=== PATIENT | male | born 1980 | race Caucasian/White ===

== ENCOUNTER 2023-06-22 11:58 | Inpatient (IN) | payer OTHER ==
[2023-06-22 12:31] VITALS: BMI 21.6
[2023-06-22] MEDS ORDERED: POLYETHYLENE GLYCOL (HEALTHYLAX) 3350 17 GM PACKET PO PRN (15:43)
[2023-06-22] MEDS ORDERED: NALOXONE HCL (KLOXXADO) 8 MG SPRAY NS PRN (15:43)
[2023-06-22] MEDS ORDERED: ACETAMINOPHEN 325 MG TABLET (FP) PO PRN (15:43)
[2023-06-22] MEDS ORDERED: IBUPROFEN 400 MG TABLET (FP) PO PRN (15:43)
[2023-06-22] MEDS ORDERED: DICYCLOMINE HCL 10 MG CAPSULE PO PRN (15:43)
[2023-06-22] MEDS ORDERED: MAG HYDROX/AL HYDROX/SIMETH 30 ML UNIT-DOSE CUP PO PRN (15:43)
[2023-06-22] MEDS ORDERED: LOPERAMIDE HCL 2 MG CAPSULE PO PRN (15:43)
[2023-06-22] MEDS ORDERED: BENZONATATE 200 MG CAPSULE PO PRN (15:43)
[2023-06-22] MEDS ORDERED: NALOXONE HCL 0.4 MG/ML VIAL IM PRN (15:43)
[2023-06-22] MEDS ORDERED: BENZOCAINE/MENTHOL (CHLORASEPTIC ) LOZENGE MM PRN (15:43)
[2023-06-22] MEDS ORDERED: ONDANSETRON *ODT* 4 MG TABLET SL PRN (15:43)
[2023-06-22] MEDS ORDERED: MAGNESIUM HYDROX 2400MG/30ML ORAL SUSPENSION 30 ML CUP PO PRN (15:43)
[2023-06-22] MEDS ORDERED: guaiFENesin 600 MG TABLET.ER (FP) PO PRN (15:43)
[2023-06-22] MEDS ORDERED: levETIRAcetam 500 MG TABLET (FP) PO SCH ×2 (16:30→22:00)
[2023-06-22] MEDS: levETIRAcetam 500 MG TABLET (FP) PO SCH (21:34)
[2023-06-22] MEDS: THIAMINE HCL 100 MG TABLET (FP) PO SCH (21:34)
[2023-06-22] MEDS: METHOCARBAMOL 500 MG TABLET PO PRN (21:34)
[2023-06-22] MEDS: MELATONIN 5 MG TABLETS PO SCH (21:34)
[2023-06-23] MEDS ORDERED: chlordiazePOXIDE HCL 25 MG CAPSULE PO PRN (08:34)
[2023-06-23] MEDS: BISMUTH SUBSALICYLATE 524 MG/30 ML PO PRN (09:00)
[2023-06-23] MEDS: PRENATAL VITAMINS W/ FOLIC ACID TABLET (FP) PO SCH (09:00)
[2023-06-23] MEDS: levETIRAcetam 500 MG TABLET (FP) PO SCH ×2 (09:00→22:25)
[2023-06-23] MEDS: IBUPROFEN 600 MG TABLET (FP) PO PRN ×2 (09:05→22:26)
[2023-06-23] MEDS: chlordiazePOXIDE HCL 25 MG CAPSULE PO SCH ×3 (10:52→22:25)
[2023-06-23 12:14] LABS: CHLORIDE 106 mmol/L (98-107); POTASSIUM 3.6 mmol/L (3.5-5.1); SODIUM 141 mmol/L (136-145)
[2023-06-23 12:18] LABS: CALCIUM 8.5 mg/dL (8.5-10.1)
[2023-06-23 12:19] LABS: ALBUMIN 3.3 g/dl (3.4-5.0); ANION GAP 8 mmol/L (4-13); BLOOD UREA NITROGEN 6.1 mg/dL (7-18); CO2 28 mmol/L (21-32); GLUCOSE,RANDOM 89 mg/dL (74-106); HEMATOCRIT 40.1 % (35.4-49); HEMOGLOBIN 12.8 GM/dL (11.7-16.9); MCH 28.6 pg (25.7-33.7); MCHC 31.9 g/dl (32.0-35.9); MEAN CELL VOLUME 89.8 fl (80-96); MEAN PLT VOLUME 8.4 fl (7.5-11.1); PLATELET COUNT 81 10^3/uL (134-434); RBC 4.46 M/mm3 (4.00-5.60); RDW 19.1 % (11.9-15.9); WHITE BLOOD COUNT 2.9 K/mm3 (4.0-10.0)
[2023-06-23 12:22] LABS: CREATININE 0.6 mg/dL (0.55-1.3); SGOT/AST 173 U/L (15-37); SGPT/ALT 115 U/L (13-61)
[2023-06-23 12:23] LABS: BILIRUBIN,TOTAL 1.2 mg/dL (0.2-1); TOT PROT 6.6 g/dl (6.4-8.2)
[2023-06-23 12:25] LABS: ALK PHOS 128 U/L (45-117)
[2023-06-23] MEDS: METHOCARBAMOL 500 MG TABLET PO PRN ×2 (14:00→22:25)
[2023-06-23] MEDS: METOPROLOL TARTRATE 25 MG TABLET (FP) PO SCH (15:28)
[2023-06-23] MEDS: THIAMINE HCL 100 MG TABLET (FP) PO SCH (22:25)
[2023-06-23] MEDS: MELATONIN 5 MG TABLETS PO SCH (22:25)
[2023-06-24] MEDS: chlordiazePOXIDE HCL 25 MG CAPSULE PO SCH ×4 (05:46→22:07)
[2023-06-24] MEDS: PRENATAL VITAMINS W/ FOLIC ACID TABLET (FP) PO SCH (10:10)
[2023-06-24] MEDS: levETIRAcetam 500 MG TABLET (FP) PO SCH ×2 (10:10→22:06)
[2023-06-24] MEDS: IBUPROFEN 600 MG TABLET (FP) PO PRN ×2 (10:10→17:35)
[2023-06-24] MEDS: METHOCARBAMOL 500 MG TABLET PO PRN ×2 (10:10→22:07)
[2023-06-24] MEDS: METOPROLOL TARTRATE 25 MG TABLET (FP) PO SCH (10:10)
[2023-06-24 12:21] LABS: HEMATOCRIT 41.2 % (35.4-49); HEMOGLOBIN 13.5 GM/dL (11.7-16.9); MCH 28.9 pg (25.7-33.7); MCHC 32.7 g/dl (32.0-35.9); MEAN CELL VOLUME 88.2 fl (80-96); MEAN PLT VOLUME 9.2 fl (7.5-11.1); PLATELET COUNT 84 10^3/uL (134-434); RBC 4.67 M/mm3 (4.00-5.60); RDW 18.7 % (11.9-15.9); WHITE BLOOD COUNT 2.7 K/mm3 (4.0-10.0)
[2023-06-24 12:26] LABS: POTASSIUM 3.6 mmol/L (3.5-5.1)
[2023-06-24 12:28] LABS: CALCIUM 8.2 mg/dL (8.5-10.1)
[2023-06-24 12:29] LABS: ALBUMIN 3.2 g/dl (3.4-5.0); BLOOD UREA NITROGEN 7.4 mg/dL (7-18)
[2023-06-24 12:32] LABS: CREATININE 0.6 mg/dL (0.55-1.3)
[2023-06-24 12:34] LABS: BILIRUBIN,TOTAL 0.7 mg/dL (0.2-1); TOT PROT 6.5 g/dl (6.4-8.2)
[2023-06-24] MEDS: BISMUTH SUBSALICYLATE 524 MG/30 ML PO PRN (17:39)
[2023-06-24] MEDS: THIAMINE HCL 100 MG TABLET (FP) PO SCH (22:06)
[2023-06-24] MEDS: MELATONIN 5 MG TABLETS PO SCH (22:06)
[2023-06-24] MEDS: hydrOXYzine PAMOATE 25 MG CAPSULE (FP) PO PRN (22:07)
[2023-06-25] MEDS: chlordiazePOXIDE HCL 25 MG CAPSULE PO SCH ×4 (05:50→22:05)
[2023-06-25] MEDS: METHOCARBAMOL 500 MG TABLET PO PRN ×2 (08:05→22:05)
[2023-06-25] MEDS: hydrOXYzine PAMOATE 25 MG CAPSULE (FP) PO PRN ×2 (08:05→22:05)
[2023-06-25] MEDS: levETIRAcetam 500 MG TABLET (FP) PO SCH ×2 (10:19→22:05)
[2023-06-25] MEDS: METOPROLOL TARTRATE 25 MG TABLET (FP) PO SCH (10:19)
[2023-06-25] MEDS: PRENATAL VITAMINS W/ FOLIC ACID TABLET (FP) PO SCH (10:20)
[2023-06-25] MEDS: IBUPROFEN 600 MG TABLET (FP) PO PRN (10:21)
[2023-06-25] MEDS: THIAMINE HCL 100 MG TABLET (FP) PO SCH (22:05)
[2023-06-25] MEDS: MELATONIN 5 MG TABLETS PO SCH (22:05)
[2023-06-25] MEDS: BISMUTH SUBSALICYLATE 524 MG/30 ML PO PRN (22:08)
[2023-06-26] MEDS ORDERED: chlordiazePOXIDE HCL 10 MG CAPSULE PO PRN
[2023-06-26] MEDS: chlordiazePOXIDE HCL 10 MG CAPSULE PO SCH ×4 (05:53→22:13)
[2023-06-26] MEDS: METHOCARBAMOL 500 MG TABLET PO PRN ×2 (05:53→22:13)
[2023-06-26] MEDS: PRENATAL VITAMINS W/ FOLIC ACID TABLET (FP) PO SCH (10:26)
[2023-06-26] MEDS: METOPROLOL TARTRATE 25 MG TABLET (FP) PO SCH (10:26)
[2023-06-26] MEDS: levETIRAcetam 500 MG TABLET (FP) PO SCH ×2 (10:26→22:13)
[2023-06-26 11:37] LABS: POTASSIUM 4.3 mmol/L (3.5-5.1)
[2023-06-26 11:42] LABS: BASO % 0.8 % (0-2.0); HEMATOCRIT 40.5 % (35.4-49); HEMOGLOBIN 13.1 GM/dL (11.7-16.9); LYMPH % 29.5 % (8-40); MCH 29.2 pg (25.7-33.7); MCHC 32.3 g/dl (32.0-35.9); MEAN CELL VOLUME 90.4 fl (80-96); NEUT % 47.7 % (42.8-82.8); PLATELET COUNT 117 10^3/uL (134-434); RBC 4.48 M/mm3 (4.00-5.60); RDW 19.1 % (11.9-15.9); WHITE BLOOD COUNT 4.2 K/mm3 (4.0-10.0)
[2023-06-26 11:44] LABS: CALCIUM 8.8 mg/dL (8.5-10.1)
[2023-06-26 11:47] LABS: BLOOD UREA NITROGEN 16.1 mg/dL (7-18)
[2023-06-26 11:50] LABS: CREATININE 0.6 mg/dL (0.55-1.3)
[2023-06-26] MEDS: BISMUTH SUBSALICYLATE 524 MG/30 ML PO PRN (17:13)
[2023-06-26] MEDS: IBUPROFEN 600 MG TABLET (FP) PO PRN (17:15)
[2023-06-26] MEDS: THIAMINE HCL 100 MG TABLET (FP) PO SCH (22:13)
[2023-06-26] MEDS: MELATONIN 5 MG TABLETS PO SCH (22:13)
[2023-06-27] MEDS: IBUPROFEN 600 MG TABLET (FP) PO PRN ×2 (01:31→17:29)
[2023-06-27] MEDS: chlordiazePOXIDE HCL 10 MG CAPSULE PO SCH ×2 (05:21→17:30)
[2023-06-27] MEDS: METOPROLOL TARTRATE 25 MG TABLET (FP) PO SCH (09:49)
[2023-06-27] MEDS: levETIRAcetam 500 MG TABLET (FP) PO SCH ×2 (09:49→22:14)
[2023-06-27] MEDS: PRENATAL VITAMINS W/ FOLIC ACID TABLET (FP) PO SCH (09:49)
[2023-06-27] MEDS: BISMUTH SUBSALICYLATE 524 MG/30 ML PO PRN (17:29)
[2023-06-27] MEDS: THIAMINE HCL 100 MG TABLET (FP) PO SCH (22:14)
[2023-06-27] MEDS: METHOCARBAMOL 500 MG TABLET PO PRN (22:14)
[2023-06-27] MEDS: MELATONIN 5 MG TABLETS PO SCH (22:14)
[2023-06-28] MEDS ORDERED: chlordiazePOXIDE HCL 10 MG CAPSULE PO ONE (05:00)
[2023-06-28] MEDS: levETIRAcetam 500 MG TABLET (FP) PO SCH (10:07)
[2023-06-28] MEDS: PRENATAL VITAMINS W/ FOLIC ACID TABLET (FP) PO SCH (10:07)
[2023-06-28] MEDS: METOPROLOL TARTRATE 25 MG TABLET (FP) PO SCH (10:07)
[2023-06-28] MEDS: IBUPROFEN 600 MG TABLET (FP) PO PRN (10:08)
[2023-06-28 14:11] VITALS: BP 113/73; PULSE 79; RESP 18; TEMP 97.8
== END 2023-06-28 14:48 | disposition short-term general hospital (02) | DRG 775 ==
LOC: YASAS 11:58 → Y3N 15:39
PROVIDERS: ADMIT Allergy & Immunology; ATTEND Psychiatry & Neurology Pain Medicine
PROC: HZ2ZZZZ Detoxification Services for Substance Abuse Treatment (ICD-10-PCS; principal; 2023-06-22)
DX: F10.230 Alcohol dependence with withdrawal, uncomplicated (principal); F17.210 Nicotine dependence, cigarettes, uncomplicated; D72.819 Decreased white blood cell count, unspecified; G40.909 Epilepsy, unspecified, not intractable, without status epilepticus; I10 Essential (primary) hypertension; R74.01 Elevation of levels of liver transaminase levels; R91.8 Other nonspecific abnormal finding of lung field; Z86.11 Personal history of tuberculosis; Z99.89 Dependence on other enabling machines and devices
CPT/HCPCS: 36415; 71046-TC-FY; 71250-TC; 80048; 80053; 80177; 80307; 85025; 85027; 86780; 87635; 93005; 93010

== ENCOUNTER 2023-06-28 15:38 | Emergency (ER) | payer OTHER | END 2023-06-28 16:00 | disposition left against medical advice (07) | LOC: JER 15:38 | DX: Z53.21 Procedure and treatment not carried out due to patient leaving prior to being seen by health care provider (principal) | CPT/HCPCS: 99281-25 ==

== ENCOUNTER 2023-08-11 10:43 | Inpatient (IN) | payer OTHER ==
[2023-08-11 11:18] VITALS: BMI 22.4
[2023-08-11] MEDS ORDERED: chlordiazePOXIDE HCL 25 MG CAPSULE PO PRN (11:56)
[2023-08-11] MEDS ORDERED: chlordiazePOXIDE HCL 25 MG CAPSULE PO ONE (12:00)
[2023-08-11] MEDS ORDERED: levETIRAcetam 500 MG TABLET (FP) PO SCH (12:00)
[2023-08-11] MEDS ORDERED: guaiFENesin 600 MG TABLET.ER (FP) PO PRN (12:04)
[2023-08-11] MEDS ORDERED: DICYCLOMINE HCL 10 MG CAPSULE PO PRN (12:04)
[2023-08-11] MEDS ORDERED: ONDANSETRON *ODT* 4 MG TABLET SL PRN (12:04)
[2023-08-11] MEDS ORDERED: IBUPROFEN 400 MG TABLET (FP) PO PRN (12:04)
[2023-08-11] MEDS ORDERED: LOPERAMIDE HCL 2 MG CAPSULE PO PRN (12:04)
[2023-08-11] MEDS ORDERED: BENZOCAINE/MENTHOL (CHLORASEPTIC ) LOZENGE MM PRN (12:04)
[2023-08-11] MEDS ORDERED: POLYETHYLENE GLYCOL (HEALTHYLAX) 3350 17 GM PACKET PO PRN (12:04)
[2023-08-11] MEDS ORDERED: MAG HYDROX/AL HYDROX/SIMETH 30 ML UNIT-DOSE CUP PO PRN (12:04)
[2023-08-11] MEDS ORDERED: ACETAMINOPHEN 325 MG TABLET (FP) PO PRN (12:04)
[2023-08-11] MEDS ORDERED: MAGNESIUM HYDROX 2400MG/30ML ORAL SUSPENSION 30 ML CUP PO PRN (12:04)
[2023-08-11] MEDS ORDERED: P-EPHED 60MG/TRIPROLIDI 2.5MG TABLET PO PRN (12:04)
[2023-08-11] MEDS ORDERED: NICOTINE POLACRILEX 2 MG GUM BUC PRN (12:04)
[2023-08-11] MEDS ORDERED: BENZONATATE 200 MG CAPSULE PO PRN (12:04)
[2023-08-11] MEDS ORDERED: BISMUTH SUBSALICYLATE 262 MG/15 ML BTL PO PRN (12:04)
[2023-08-11] MEDS ORDERED: chlordiazePOXIDE HCL 25 MG CAPSULE ONE (12:31)
[2023-08-11] MEDS ORDERED: METOPROLOL TARTRATE 25 MG TABLET (FP) ONE (12:31)
[2023-08-11] MEDS: METOPROLOL TARTRATE 25 MG TABLET (FP) PO SCH (12:32)
[2023-08-11] MEDS ORDERED: levETIRAcetam 500 MG TABLET (FP) PO ONE (12:55)
[2023-08-11] MEDS: IBUPROFEN 600 MG TABLET (FP) PO PRN (13:12)
[2023-08-11] MEDS: chlordiazePOXIDE HCL 25 MG CAPSULE PO SCH ×2 (17:21→22:18)
[2023-08-11] MEDS: levETIRAcetam 500 MG TABLET (FP) PO SCH (22:18)
[2023-08-11] MEDS: THIAMINE HCL 100 MG TABLET (FP) PO SCH (22:18)
[2023-08-11] MEDS: MELATONIN 5 MG TABLETS PO SCH (22:19)
[2023-08-12] MEDS: chlordiazePOXIDE HCL 25 MG CAPSULE PO SCH ×4 (05:11→22:22)
[2023-08-12] MEDS: IBUPROFEN 600 MG TABLET (FP) PO PRN ×2 (05:14→17:05)
[2023-08-12] MEDS: levETIRAcetam 500 MG TABLET (FP) PO SCH ×2 (10:45→22:21)
[2023-08-12] MEDS: PRENATAL VITAMINS W/ FOLIC ACID TABLET (FP) PO SCH (10:45)
[2023-08-12] MEDS: METOPROLOL TARTRATE 25 MG TABLET (FP) PO SCH (10:45)
[2023-08-12] MEDS: METHOCARBAMOL 500 MG TABLET PO PRN (10:47)
[2023-08-12 12:39] LABS: HEMATOCRIT 36.1 % (35.4-49); HEMOGLOBIN 11.6 GM/dL (11.7-16.9); MCH 28.7 pg (25.7-33.7); MEAN CELL VOLUME 89.6 fl (80-96); MEAN PLT VOLUME 8.8 fl (7.5-11.1); PLATELET COUNT 208 10^3/uL (134-434); RBC 4.03 M/mm3 (4.00-5.60); RDW 17.2 % (11.9-15.9)
[2023-08-12 12:47] LABS: POTASSIUM 3.6 mmol/L (3.5-5.1)
[2023-08-12 12:50] LABS: ALBUMIN 3.2 g/dl (3.4-5.0); CALCIUM 8.5 mg/dL (8.5-10.1)
[2023-08-12 12:51] LABS: BLOOD UREA NITROGEN 8.5 mg/dL (7-18)
[2023-08-12 12:54] LABS: CREATININE 0.6 mg/dL (0.55-1.3)
[2023-08-12 12:56] LABS: BILIRUBIN,TOTAL 0.6 mg/dL (0.2-1); TOT PROT 6.4 g/dl (6.4-8.2)
[2023-08-12] MEDS: ACETAMINOPHEN 325 MG TABLET (FP) PO PRN (22:20)
[2023-08-12] MEDS: MELATONIN 5 MG TABLETS PO SCH (22:21)
[2023-08-12] MEDS: THIAMINE HCL 100 MG TABLET (FP) PO SCH (22:22)
[2023-08-13] MEDS: chlordiazePOXIDE HCL 25 MG CAPSULE PO SCH ×4 (05:20→22:13)
[2023-08-13] MEDS: PRENATAL VITAMINS W/ FOLIC ACID TABLET (FP) PO SCH (10:16)
[2023-08-13] MEDS: METOPROLOL TARTRATE 25 MG TABLET (FP) PO SCH (10:16)
[2023-08-13] MEDS: levETIRAcetam 500 MG TABLET (FP) PO SCH ×2 (10:16→22:13)
[2023-08-13] MEDS: ACETAMINOPHEN 325 MG TABLET (FP) PO PRN (10:26)
[2023-08-13] MEDS: METHOCARBAMOL 500 MG TABLET PO PRN (20:37)
[2023-08-13] MEDS: THIAMINE HCL 100 MG TABLET (FP) PO SCH (22:13)
[2023-08-13] MEDS: MELATONIN 5 MG TABLETS PO SCH (22:13)
[2023-08-14] MEDS ORDERED: chlordiazePOXIDE HCL 10 MG CAPSULE PO PRN
[2023-08-14] MEDS: chlordiazePOXIDE HCL 10 MG CAPSULE PO SCH ×2 (05:42→10:40)
[2023-08-14 06:00] VITALS: RESP 16
[2023-08-14 09:28] VITALS: BP 110/78; PULSE 82; TEMP 98.1
[2023-08-14] MEDS: PRENATAL VITAMINS W/ FOLIC ACID TABLET (FP) PO SCH (10:35)
[2023-08-14] MEDS: levETIRAcetam 500 MG TABLET (FP) PO SCH (10:36)
[2023-08-14] MEDS: METOPROLOL TARTRATE 25 MG TABLET (FP) PO SCH (10:40)
[2023-08-15] MEDS ORDERED: chlordiazePOXIDE HCL 10 MG CAPSULE PO SCH (05:00)
[2023-08-16] MEDS ORDERED: chlordiazePOXIDE HCL 10 MG CAPSULE PO ONE (05:00)
== END 2023-08-14 11:47 | disposition left against medical advice (07) | DRG 770 ==
LOC: YASAS 10:43 → Y3N 12:23
PROVIDERS: ADMIT Allergy & Immunology; ATTEND Surgery
PROC: HZ2ZZZZ Detoxification Services for Substance Abuse Treatment (ICD-10-PCS; principal; 2023-08-11)
DX: F10.230 Alcohol dependence with withdrawal, uncomplicated (principal); F17.210 Nicotine dependence, cigarettes, uncomplicated; F19.24 Other psychoactive substance dependence with psychoactive substance-induced mood disorder; G40.909 Epilepsy, unspecified, not intractable, without status epilepticus; I10 Essential (primary) hypertension; M54.50 Low back pain, unspecified; G89.29 Other chronic pain; R74.8 Abnormal levels of other serum enzymes; Z87.828 Personal history of other (healed) physical injury and trauma; Z99.89 Dependence on other enabling machines and devices; Z59.00 Homelessness unspecified
CPT/HCPCS: 36415; 80053; 85027; 86780; 87635; 87811

== ENCOUNTER 2023-09-01 21:51 | Inpatient (IN) | payer OTHER ==
[2023-09-01 22:21] VITALS: BMI 22.9
[2023-09-02] MEDS ORDERED: NALOXONE HCL (KLOXXADO) 8 MG SPRAY NS PRN (00:12)
[2023-09-02] MEDS ORDERED: NICOTINE POLACRILEX 2 MG GUM BUC PRN (00:12)
[2023-09-02] MEDS ORDERED: IBUPROFEN 400 MG TABLET (FP) PO PRN (00:12)
[2023-09-02] MEDS ORDERED: ACETAMINOPHEN 325 MG TABLET (FP) PO PRN (00:12)
[2023-09-02] MEDS ORDERED: MAG HYDROX/AL HYDROX/SIMETH 30 ML UNIT-DOSE CUP PO PRN (00:12)
[2023-09-02] MEDS ORDERED: NALOXONE HCL 0.4 MG/ML VIAL IM PRN (00:12)
[2023-09-02] MEDS ORDERED: ONDANSETRON *ODT* 4 MG TABLET SL PRN (00:12)
[2023-09-02] MEDS ORDERED: BENZOCAINE/MENTHOL (CHLORASEPTIC ) LOZENGE MM PRN (00:12)
[2023-09-02] MEDS ORDERED: DICYCLOMINE HCL 10 MG CAPSULE PO PRN (00:12)
[2023-09-02] MEDS ORDERED: MAGNESIUM HYDROX 2400MG/30ML ORAL SUSPENSION 30 ML CUP PO PRN (00:12)
[2023-09-02] MEDS ORDERED: POLYETHYLENE GLYCOL (HEALTHYLAX) 3350 17 GM PACKET PO PRN (00:12)
[2023-09-02] MEDS ORDERED: BISMUTH SUBSALICYLATE 524 MG/30 ML PO PRN (00:12)
[2023-09-02] MEDS ORDERED: LOPERAMIDE HCL 2 MG CAPSULE PO PRN (00:12)
[2023-09-02] MEDS: IBUPROFEN 600 MG TABLET (FP) PO PRN ×3 (04:22→21:34)
[2023-09-02] MEDS: METHOCARBAMOL 500 MG TABLET PO PRN ×2 (04:23→21:34)
[2023-09-02] MEDS: BENZONATATE 200 MG CAPSULE PO PRN (09:26)
[2023-09-02] MEDS: METOPROLOL TARTRATE 25 MG TABLET (FP) PO SCH (09:26)
[2023-09-02] MEDS: levETIRAcetam 500 MG TABLET (FP) PO SCH ×2 (09:26→21:34)
[2023-09-02] MEDS: PRENATAL VITAMINS W/ FOLIC ACID TABLET (FP) PO SCH (09:27)
[2023-09-02] MEDS: NICOTINE 21 MG/24 HOURS TOPICAL PATCH TD SCH (09:27)
[2023-09-02] MEDS ORDERED: chlordiazePOXIDE HCL 25 MG CAPSULE PO PRN (10:09)
[2023-09-02] MEDS: chlordiazePOXIDE HCL 25 MG CAPSULE PO SCH ×3 (10:27→22:27)
[2023-09-02] MEDS: guaiFENesin 600 MG TABLET.ER (FP) PO PRN ×2 (14:11→21:34)
[2023-09-02] MEDS: THIAMINE HCL 100 MG TABLET (FP) PO SCH (21:34)
[2023-09-02] MEDS: MELATONIN 5 MG TABLETS PO SCH (21:34)
[2023-09-03] MEDS: chlordiazePOXIDE HCL 25 MG CAPSULE PO SCH ×4 (05:42→22:38)
[2023-09-03] MEDS: PRENATAL VITAMINS W/ FOLIC ACID TABLET (FP) PO SCH (10:18)
[2023-09-03] MEDS: levETIRAcetam 500 MG TABLET (FP) PO SCH ×2 (10:18→22:36)
[2023-09-03] MEDS: NICOTINE 21 MG/24 HOURS TOPICAL PATCH TD SCH (10:18)
[2023-09-03] MEDS: METOPROLOL TARTRATE 25 MG TABLET (FP) PO SCH (10:18)
[2023-09-03] MEDS: cloNIDine HCL 0.1 MG TABLET PO PRN (10:18)
[2023-09-03 11:43] LABS: HEMATOCRIT 34.1 % (35.4-49); HEMOGLOBIN 11.1 GM/dL (11.7-16.9); MCH 27.7 pg (25.7-33.7); MCHC 32.6 g/dl (32.0-35.9); MEAN PLT VOLUME 8.7 fl (7.5-11.1); PLATELET COUNT 74 10^3/uL (134-434); RBC 4.02 M/mm3 (4.00-5.60); RDW 17.8 % (11.9-15.9)
[2023-09-03 11:47] LABS: WHITE BLOOD COUNT 1.8 K/mm3 (4.0-10.0)
[2023-09-03 12:04] LABS: POTASSIUM 3.5 mmol/L (3.5-5.1)
[2023-09-03 12:11] LABS: ALBUMIN 3.4 g/dl (3.4-5.0); CALCIUM 8.6 mg/dL (8.5-10.1)
[2023-09-03 12:12] LABS: CREATININE 0.6 mg/dL (0.55-1.3)
[2023-09-03 12:13] LABS: BILIRUBIN,TOTAL 0.4 mg/dL (0.2-1); TOT PROT 6.8 g/dl (6.4-8.2)
[2023-09-03 12:23] LABS: BLOOD UREA NITROGEN 7.7 mg/dL (7-18)
[2023-09-03] MEDS: METHOCARBAMOL 500 MG TABLET PO PRN (22:36)
[2023-09-03] MEDS: MELATONIN 5 MG TABLETS PO SCH (22:36)
[2023-09-03] MEDS: THIAMINE HCL 100 MG TABLET (FP) PO SCH (22:53)
[2023-09-04] MEDS: chlordiazePOXIDE HCL 25 MG CAPSULE PO SCH ×4 (05:44→22:03)
[2023-09-04] MEDS: PRENATAL VITAMINS W/ FOLIC ACID TABLET (FP) PO SCH (09:29)
[2023-09-04] MEDS: METHOCARBAMOL 500 MG TABLET PO PRN ×2 (09:29→21:54)
[2023-09-04] MEDS: METOPROLOL TARTRATE 25 MG TABLET (FP) PO SCH (09:29)
[2023-09-04] MEDS: levETIRAcetam 500 MG TABLET (FP) PO SCH ×2 (09:29→21:54)
[2023-09-04] MEDS: BENZONATATE 200 MG CAPSULE PO PRN (09:29)
[2023-09-04] MEDS: NICOTINE 21 MG/24 HOURS TOPICAL PATCH TD SCH (09:37)
[2023-09-04] MEDS: cloNIDine HCL 0.1 MG TABLET PO PRN (13:20)
[2023-09-04] MEDS: MELATONIN 5 MG TABLETS PO SCH (21:54)
[2023-09-04] MEDS: THIAMINE HCL 100 MG TABLET (FP) PO SCH (21:54)
[2023-09-05] MEDS ORDERED: chlordiazePOXIDE HCL 10 MG CAPSULE PO PRN
[2023-09-05] MEDS: chlordiazePOXIDE HCL 10 MG CAPSULE PO SCH ×4 (05:37→22:16)
[2023-09-05] MEDS: levETIRAcetam 500 MG TABLET (FP) PO SCH ×2 (09:36→22:16)
[2023-09-05] MEDS: NICOTINE 21 MG/24 HOURS TOPICAL PATCH TD SCH (09:36)
[2023-09-05] MEDS: PRENATAL VITAMINS W/ FOLIC ACID TABLET (FP) PO SCH (09:36)
[2023-09-05] MEDS: METOPROLOL TARTRATE 25 MG TABLET (FP) PO SCH (09:36)
[2023-09-05 11:08] LABS: BASO % 0.7 % (0-2.0); EOS % 5.2 % (0-4.5); HEMATOCRIT 38.5 % (35.4-49); HEMOGLOBIN 12.2 GM/dL (11.7-16.9); LYMPH % 43.9 % (8-40); MCH 27.5 pg (25.7-33.7); MCHC 31.8 g/dl (32.0-35.9); MEAN CELL VOLUME 86.4 fl (80-96); MEAN PLT VOLUME 8.9 fl (7.5-11.1); MONO % 18.7 % (3.8-10.2); NEUT % 31.5 % (42.8-82.8); PLATELET COUNT 95 10^3/uL (134-434); RBC 4.45 M/mm3 (4.00-5.60); RDW 17.6 % (11.9-15.9); WHITE BLOOD COUNT 2.9 K/mm3 (4.0-10.0)
[2023-09-05] MEDS: cloNIDine HCL 0.1 MG TABLET PO PRN (12:42)
[2023-09-05] MEDS: METHOCARBAMOL 500 MG TABLET PO PRN (12:42)
[2023-09-05] MEDS: guaiFENesin 200 MG/10 ML 10 ML UNIT-DOSE CUPS PO PRN ×3 (12:56→22:00)
[2023-09-05] MEDS: MELATONIN 5 MG TABLETS PO SCH (22:16)
[2023-09-05] MEDS: THIAMINE HCL 100 MG TABLET (FP) PO SCH (22:16)
[2023-09-06] MEDS: chlordiazePOXIDE HCL 10 MG CAPSULE PO SCH ×2 (06:00→17:35)
[2023-09-06] MEDS: levETIRAcetam 500 MG TABLET (FP) PO SCH ×2 (10:07→22:05)
[2023-09-06] MEDS: PRENATAL VITAMINS W/ FOLIC ACID TABLET (FP) PO SCH (10:07)
[2023-09-06] MEDS: NICOTINE 21 MG/24 HOURS TOPICAL PATCH TD SCH (10:08)
[2023-09-06] MEDS: METOPROLOL TARTRATE 25 MG TABLET (FP) PO SCH (10:08)
[2023-09-06] MEDS: guaiFENesin 200 MG/10 ML 10 ML UNIT-DOSE CUPS PO PRN ×2 (17:30→22:06)
[2023-09-06] MEDS: MELATONIN 5 MG TABLETS PO SCH (22:05)
[2023-09-06] MEDS: THIAMINE HCL 100 MG TABLET (FP) PO SCH (22:06)
[2023-09-07] MEDS ORDERED: chlordiazePOXIDE HCL 10 MG CAPSULE PO ONE (05:00)
[2023-09-07 09:12] VITALS: RESP 18
[2023-09-07] MEDS: METOPROLOL TARTRATE 25 MG TABLET (FP) PO SCH (10:38)
[2023-09-07] MEDS: PRENATAL VITAMINS W/ FOLIC ACID TABLET (FP) PO SCH (10:38)
[2023-09-07] MEDS: levETIRAcetam 500 MG TABLET (FP) PO SCH (10:38)
[2023-09-07] MEDS: NICOTINE 21 MG/24 HOURS TOPICAL PATCH TD SCH (10:38)
[2023-09-07 12:55] VITALS: BP 131/87; PULSE 75; TEMP 97.7
== END 2023-09-07 14:08 | disposition home or self-care (01) | DRG 775 ==
LOC: YASAS 21:51 → Y3N 09-02 04:08
PROVIDERS: ADMIT Allergy & Immunology; ATTEND Surgery
PROC: HZ2ZZZZ Detoxification Services for Substance Abuse Treatment (ICD-10-PCS; principal; 2023-09-02)
DX: F10.230 Alcohol dependence with withdrawal, uncomplicated (principal); F17.210 Nicotine dependence, cigarettes, uncomplicated; U07.1 COVID-19; D69.6 Thrombocytopenia, unspecified; D72.819 Decreased white blood cell count, unspecified; I10 Essential (primary) hypertension; G40.909 Epilepsy, unspecified, not intractable, without status epilepticus; R76.11 Nonspecific reaction to tuberculin skin test without active tuberculosis; Z99.89 Dependence on other enabling machines and devices
CPT/HCPCS: 36415; 80053; 80307; 85025; 85027; 86780; 87635; 87811; 93005; 93010